=== PATIENT | male | born 1950 | race Caucasian/White ===

== ENCOUNTER 2016-04-21 07:56 | Emergency (ER) | payer MEDICARE ==
--- NOTE | 2016-04-21 08:42 | UC ---
Ear Complaint HPI - HPI Summary HPI Summary: pt c/o bilateral ear discomfort X 1 week. Has history of cerumen impaction and sees Dr. Mcdonald monthly for bilateral irrigation. C/o of dizziness and "ear itchiness" Has history of MS and is legally blind. Is accompanied by . - History of Current Complaint Chief Complaint: UCEar Stated Complaint: EAR COMPLAINT-BOTH Time Seen by Provider: 04/21/16 08:31 Hx Obtained From: Patient Onset/Duration: Gradual Onset, Lasting Days, Still Present Severity Initially: Mild Severity Currently: Mild Associated Signs/Symptoms: Positive: Hearing Loss - Allergies/Home Medications Allergies/Adverse Reactions: Allergies Allergy/AdvReac Type Severity Reaction Status Date / Time Acetazolamide Allergy Unknown Dizziness Unverified 04/21/16 08:16 [From Diamox Sequels] Baclofen Allergy Unknown Dizziness Unverified 04/21/16 08:16 Pravastatin Allergy Muscle Ache Verified 04/21/16 08:16 alphagen p Allergy Unknown See Comment Uncoded 04/21/16 08:16 PMH/Surg Hx/FS Hx/Imm Hx Previously Healthy: No - pt has MS and is legally blind Cardiovascular History Of: Reports: Hypertension - Surgical History Surgical History: Yes Surgery Procedure, Year, and Place: prostate scraping. Lazer surgery eyes. hernia - Family History Known Family History: Positive: Cardiac Disease - Social History Lives: With Family Alcohol Use: Occasionally Substance Use Type: None Smoking Status (MU): Former Smoker When Did the Patient Quit Smoking/Using Tobacco: 2005 Review of Systems Constitutional: Negative Skin: Negative Eyes: Negative ENT: Ear Ache, Other - hearing loss Respiratory: Negative Cardiovascular: Negative Gastrointestinal: Negative Genitourinary: Negative Motor: Negative Neurovascular: Negative Musculoskeletal: Arthralgia, Myalgia Neurological: Negative Psychological: Negative All Other Systems Reviewed And Are Negative: Yes Physical Exam Triage Information Reviewed: Yes Appearance: Well-Appearing Vital Signs: Initial Vital Signs Temp 98.4 F 04/21/16 08:17 Pulse 88 04/21/16 08:17 Resp 18 04/21/16 08:17 BP 172/94 04/21/16 08:17 Pulse Ox 99 04/21/16 08:17 Vital Signs Reviewed: Yes Eye Exam: Normal, Other - pt is legally blind ENT: Positive: Other: - "itchy" bialteral ears Neck exam: Normal Respiratory Exam: Normal Cardiovascular Exam: Normal Musculoskeletal Exam: Other Musculoskeletal: Positive: ROM Limited @, Other: - History of MS and legally blind Neurological: Positive: Other: - history of ms Skin Exam: Normal Ear Complaint Course/Dx - Differential Dx/Diagnosis Differential Diagnosis/HQI/PQRI: Cerumen Impaction, Otitis Externa Provider Diagnoses: cerumen impaction. otitis externa Discharge - Discharge Plan Condition: Stable Disposition: HOME Prescriptions: Hydrocortisone W/Acetic Acid [Hydrocortisone/Acetic Aci 1-2 %] 1 thierno OT Q8H #1 bottle Patient Education Materials: Cerumen Impaction (ED) Referrals: Luis E Mcdonald MD [Medical Doctor] - Sg Truong MD [Primary Care Provider] - Additional Instructions: Please follow up with Dr. Mcdonald. you are an existing patient with Dr. Mcdonald and it is important to continue with continuity of care.
[2016-04-21 09:17] VITALS: BP 164/95
== END 2016-04-21 09:28 | disposition home or self-care (01) ==
LOC: UCCORT 07:56
DX: H61.23 Impacted cerumen, bilateral (principal); H60.8X3 Other otitis externa, bilateral; I10 Essential (primary) hypertension; H54.8 Legal blindness, as defined in USA; Z87.39 Personal history of other diseases of the musculoskeletal system and connective tissue; Z88.6 Allergy status to analgesic agent; Z88.8 Allergy status to other drugs, medicaments and biological substances; Z87.891 Personal history of nicotine dependence
CPT/HCPCS: 99213; G0463

== ENCOUNTER 2017-12-31 09:27 | Emergency (ER) | payer MEDICARE ==
--- OUTSIDE RECORDS SUMMARY | 2017-12-31 09:36 | XMS REPORT | Continuity of Care Document ---
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 Sg Truong MD Primary Care Physician Unavailable Payers Type Date Identification Numbers Payment Provider Subscriber Policy Number: [id number] [employer] Jaquan Lees Group Number: [id number] [address] [address] PayID: [id number] [place] [address] Advance Directives Description No Information Available Problems Description No Information Family History Description No Information Available Social History Type Date Description Comments Sex Unknown Allergies, Adverse Reactions, Alerts Date Description Reaction Status Severity Comments 12/15/2017 Alphagan Active 12/15/2017 Baclofen Active 12/15/2017 Diamox Active 12/15/2017 Pravastatin Active Medications Medication Date Status Form Strength Qnty SIG Indications Ordering Provider Pilocarpine 11/24/ Active Solution 4% 30unit Instill Frank S HCL 2018 s One Drop Jeremy Into The MD Right Eye Four Times A Day as Directed Latanoprost 08/08/ Active Solution 0.005% 7.5uni Instill 1 Frank S 2018 ts Drop In Jeremy The Right MD Eye AT Bedtime as Directed Ezetimibe / Active Tablets 10mg Unknown 0000 Dorzolamide 09/28/ Hx Solution 22.3-6.8mg 10unit Instill Frank S HCL/Timolol 2018 - /ml s One Drop Jeremy Maleate 12/15/ Into The MD 2018 Right Eye Two Times A Day as Directed Immunizations Description No Information Available Vital Signs Description No Information Available Results Description No Information Available Procedures Date Code Description Status 06/13/2017 62559 Scan Computer Diag Imag W/Report,Retina Completed 06/13/2017 25464 Scan Computer Diag Imag W/Report Optic Nerve Completed 06/13/2017 14112 Vis Field W/Med Diag;Ext,Ruperto Per Completed 06/13/2017 17890 Exam, Comprehensive, Est PT Completed 12/25/2016 47108 Vis Field W/Med Diag;Ext,Ruperto Per Completed 12/04/2016 94344 Scan Computer Diag Imag W/Report Optic Nerve Completed 12/04/2016 41538 Vis Field W/Med Diag;Ext,Ruperto Per Completed 12/04/2016 63142 Exam, Comprehensive, Est PT Completed 09/03/2016 90089 Scan Computer Diag Imag W/Report Optic Nerve Completed 09/03/2016 22631 Exam, Comprehensive, Est PT Completed 05/28/2016 78498 Exam, Comprehensive, Est PT Completed 05/28/2016 80648 Vis Field W/Med Diag;Ext,Ruperto Per Completed 05/28/2016 77945 Scan Computer Diag Imag W/Report Optic Nerve Completed 11/28/2015 93866 Ophthalmoscopy; W/Fundus Photo Completed 11/28/2015 77833 Vis Field W/Med Diag;Ext,Ruperto Per Completed 11/28/2015 81283 Exam, Comprehensive, Est PT Completed 05/24/2015 23099 Scan Computer Diag Imag W/Report Optic Nerve Completed 05/24/2015 87183 Vis Field W/Med Diag;Ext,Ruperto Per Completed 05/24/2015 27870 Exam, Comprehensive, Est PT Completed 11/21/2014 52645 Cornea Pachymetry, Unilat/Bilat Completed 11/21/2014 41598 Exam, Comprehensive, Est PT Completed 11/21/2014 90405 Vis Field W/Med Diag;Ext,Ruperto Per Completed 11/21/2014 14183 Scanning Computerized Ophthalmic Diagnostic Imaging, Completed Anterior 11/21/2014 18665 Scan Computer Diag Imag W/Report Optic Nerve Completed 07/01/2014 62113 Vis Field W/Med Diag;Ext,Ruperto Per Completed 07/01/2014 85431 Exam, Comprehensive, Est PT Completed 03/03/2014 22972 Scan Computer Diag Imag W/Report Optic Nerve Completed 03/03/2014 74400 Vis Field W/Med Diag;Ext,Ruperto Per Completed 03/03/2014 36962 Exam, Comprehensive, Est PT Completed 09/21/2013 43678 Vis Field W/Med Diag;Ext,Ruperto Per Completed 09/21/2013 59092 Exam, Comprehensive, Est PT Completed 07/30/2013 71882 Exam, Comprehensive, Est PT Completed 07/30/2013 51106 Vis Field W/Med Diag;Ext,Ruperto Per Completed 07/30/2013 62720 Scan Computer Diag Imag W/Report Optic Nerve Completed 01/26/2013 36283 Vis Field W/Med Diag;Ext,Ruperto Per Completed 06/18/2012 18151 Scan Computer Diag Imag W/Report Optic Nerve Completed 06/18/2012 76188 Vis Field W/Med Diag;Ext,Ruperto Per Completed 01/21/2012 34917 Vis Field W/Med Diag;Ext,Ruperto Per Completed 12/20/2011 63461 Ophthalmoscopy; W/Fundus Photo Completed 12/20/2011 64086 Vis Field W/Med Diag;Ext,Ruperto Per Completed 06/19/2011 86836 Vis Field W/Med Diag;Ext,Ruperto Per Completed 11/30/2010 30891 Vis Field W/Med Diag;Ext,Ruperto Per Completed 11/30/2010 41039 Scan Computer Diag Imag W/Report Optic Nerve Completed 11/07/2010 08426 Fee-Medical Report Completed 04/02/2010 61924 Scleral Reinforce;W/Graft OD Completed 04/02/2010 32381 Aqueous Shunt Extraocular Reservr Completed 03/27/2010 08473 Vis Field W/Med Diag;Ext,Ruperto Per Completed 09/11/2009 17808 OCT Completed 09/11/2009 27769 OCT Completed 09/11/2009 27223 Vis Field W/Med Diag;Ext,Ruperto Per Completed 05/08/2009 90812 Vis Field W/Med Diag;Ext,Ruperto Per Completed 11/17/2008 92346 Vis Field W/Med Diag;Ext,Ruperto Per Completed 10/10/2008 27615 Vis Field W/Med Diag;Ext,Ruperto Per Completed 03/28/2008 44040 Vis Field W/Med Diag;Ext,Ruperto Per Completed 10/05/2007 08042 Ophthalmoscopy; W/Fundus Photo Completed 10/05/2007 37483 Vis Field W/Med Diag;Ext,Ruperto Per Completed 07/27/2007 98296 Vis Field W/Med Diag;Ext,Ruperto Per Completed 01/20/2007 80035 Vis Field W/Med Diag;Ext,Ruperto Per Completed 12/16/2006 13024 Ophthalmoscopy; W/Fundus Photo Completed 08/01/2006 69953 OCT Completed 08/01/2006 67181 OCT Completed 06/26/2006 35867 Closure Of Lac Punctum By Plug Completed 06/26/2006 77580 Vis Field W/Med Diag;Ext,Ruperto Per Completed 06/26/2006 36486 OCT Completed 06/10/2006 08600 Vis Field W/Med Diag;Ext,Ruperto Per Completed 05/23/2006 86557 OCT Completed 05/16/2006 85255 Discission Sec Mem/Ant Hyaloid;Laser Surgery OD Completed 05/02/2006 77499 Vis Field W/Med Diag;Ext,Ruperto Per Completed 04/08/2006 44346 Discission Sec Mem/Ant Hyaloid;Laser Surgery OD Completed 02/18/2006 21358 Extracapsular Cat REM W/Insert Completed IOL,Manual/Phacoemulsification OD 02/06/2006 86207 IOL Master Completed 02/06/2006 04933 Anterior Segment Ultrasound Completed 02/06/2006 46737 Anterior Segment Ultrasound Completed 12/27/2005 46848 Ant Seg Photos W/Diag;Spec Micros Completed 12/27/2005 91212 Ant Seg Photos W/Diag;Spec Micros Completed 09/30/2005 53204 Aqueous Shunt Extraocular Reservr Completed 06/27/2005 58789 Vis Field W/Med Diag;Ext,Ruperto Per Completed 01/10/2005 91578 Vis Field W/Med Diag;Ext,Ruperto Per Completed 01/10/2005 82873 Gonioscopy W/Med Diag Eval Completed 10/16/2004 96833 OCT Completed 08/21/2004 69033 Ophthalmoscopy; W/Fundus Photo Completed 07/18/2004 33777 Ophthalmoscopy; W/Fundus Photo Completed 07/18/2004 29916 Vis Field W/Med Diag;Ext,Ruperto Per Completed 07/18/2004 33362 Gonioscopy W/Med Diag Eval Completed 07/18/2004 17810 Cornea Pachymetry, Unilat/Bilat Completed Encounters Type Date Location Provider Dx Diagnosis Office Visit 03/26/2017 Main Office [facility] Whitfield H40.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 Glaucoma secondary 9:45a Jeremy STANTON to eye inflam, right eye, 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, 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 H25.12 Age-related nuclear cataract, left eye 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, left eye Office Visit 12/25/2016 8:30a Main Office Frank Whitfield 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, 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, right eye, 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, 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, bilateral, early dry stage H25.812 Combined forms of age-related cataract, left eye Office Visit 06/12/2016 7:45a Main Office Frank Whitfield 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, 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, right eye, 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, left eye H25.812 Combined forms of age-related cataract, left eye Office Visit 05/19/2014 8:30a Main Office Frank Whitfield 365.04 Glaucoma Jeremy STANTON Hypertension Ocular 365.60 Glaucoma Associated W/ Unspec Ocular Disorder Office Visit 04/21/2014 8:30a Main Office Frank Whitfield 364.21 Machelle Luna MD Cyclitis 365.60 Glaucoma Associated W/ Unspec Ocular Disorder 365.04 Glaucoma Hypertension Ocular Office Visit 03/30/2014 10:00a Main Office Frank Whitfield 364.21 Machelle Luna MD Cyclitis Office Visit 12/27/2013 9:30a Main Office Frank Whitfield 365.11 Glaucoma Primary Jeremy STANTON Open Angle 365.73 Severe Stage Glaucoma 365.04 Glaucoma Hypertension Ocular Office Visit 10/26/2013 7:45a Main Office Frank Whitfield 365.04 Glaucoma Jeremy STANTON Hypertension Ocular Office Visit 04/26/2013 9:30a Main Office Frank Whitfield 365.10 Glaucoma Open Angle Jeremy STANTON Unspec 365.72 Moderate Stage Glaucoma 365.60 Glaucoma Associated W/ Unspec Ocular Disorder 364.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 Cyclitis Office Visit 01/26/2013 9:00a Main Office Frank Whitfield 364.21 Machelle uLna MD Cyclitis 365.10 Glaucoma Open Angle Unspec 365.60 Glaucoma Associated W/ Unspec Ocular Disorder Office Visit 10/14/2012 7:45a Main Office Frank S 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 365.10 Glaucoma Open Angle Unspec Office Visit 09/02/2012 7:45a Main Office Frank Whitfield 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 Office Visit 07/30/2012 8:00a Main Office Frank Whitfield 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 Office Visit 06/18/2012 8:30a Main Office Frank Whitfield 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 Office Visit 12/20/2011 8:00a Main Office Frank Whitfield 365.11 Glaucoma Primary Jeremy STANTON Open Angle 365.73 Severe Stage Glaucoma Office Visit 08/20/2011 8:00a Main Office Frank Whitfield 365.11 Glaucoma Primary Jeremy STANTON Open Angle 365.72 Moderate Stage Glaucoma 365.71 Mild Stage Glaucoma Office Visit 06/19/2011 8:15a Main Office Frank Whitfield 364.21 Fuchs Heterochrombertha Luna MD Cyclitis 365.60 Glaucoma Associated W/ Unspec Ocular Disorder Office Visit 11/30/2010 8:30a Main Office Frank Whitfield 365.11 Glaucoma Primary Jeremy STANTON Open Angle 365.73 Severe Stage Glaucoma Office Visit 07/31/2010 10:15a Main Office Frank Whitfield 364.3 Iridocyclitis Jeremy STANTON Uveitis Unspec 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 Office Visit 03/20/2010 9:00a Main Office Frank Whitfield 365.11 Glaucoma Primary Jeremy STANTON Open Angle Office Visit 02/14/2010 8:00a Main Office Frank Whitfield 365.10 Glaucoma Open Angle Jeremy STANTON Unspec Office Visit 12/29/2009 10:15a Main Office Frank Whitfield 365.11 Glaucoma Primary Jeremy STANTON Open Angle Office Visit 10/18/2009 8:00a Main Office Frank Whitfield 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 Office Visit 09/11/2009 8:15a Main Office Frank Whitfield 364.21 Fuchs Heterochrombertha Luna MD Cyclitis 365.60 Glaucoma Associated W/ Unspec Ocular Disorder Office Visit 05/08/2009 9:15a Main Office Frank Whitfield 365.60 Glaucoma Associated Jeremy STANTON W/ Unspec Ocular Disorder Office Visit 02/10/2009 9:00a Main Office Frank Whitfield 365.60 Glaucoma Associated Jeremy STANTON W/ Unspec Ocular Disorder Office Visit 11/17/2008 8:00a Main Office Frank Whitfield 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 Office Visit 10/10/2008 9:00a Main Office Frank Whitfield 365.60 Glaucoma Associated Jeremy STANTON W/ Unspec Ocular Disorder Office Visit 06/29/2008 2:15p Main Office Frank Whitfield 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 Office Visit 03/28/2008 9:15a Main Office Frank Whitfield 365.60 Glaucoma Associated Jeremy STANTON W/ Unspec Ocular Disorder Office Visit 12/25/2007 2:00p Main Office Frank Whitfield 364.21 Fuchs Heterochrombertha Luna MD Cyclitis Office Visit 12/02/2007 2:30p Main Office Frank Whitfield 365.11 Glaucoma Primary Jeremy STANTON Open Angle Office Visit 10/28/2007 3:00p Main Office Frank Whitfield 365.11 Glaucoma Primary Jeremy STANTON Open Angle Office Visit 10/05/2007 8:15a Main Office Frank Whitfield 365.11 Glaucoma Primary Jeremy STANTON Open Angle Office Visit 07/27/2007 10:15a Main Office Frank Whitfield 365.11 Glaucoma Primary Jeremy STANTON Open Angle Office Visit 07/21/2007 2:45p Main Office Frank Whitfield 364.21 Fuchs Heterochrombertha Luna MD Cyclitis Office Visit 01/20/2007 2:15p Main Office Frank Whitfield 365.11 Glaucoma Primary Jeremy STANTON Open Angle Office Visit 12/16/2006 8:00a Main Office Frank Whitfield 365.11 Glaucoma Primary Jeremy STANTON Open Angle Office Visit 08/01/2006 8:15a Main Office Frank Whitfield 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 Office Visit 06/26/2006 8:15a Main Office Frank Whitfield 375.15 Dry Eye Syndrome Jeremy STANTON Tear Film Insufficiency Unspec 365.60 Glaucoma Associated W/ Unspec Ocular Disorder Office Visit 06/10/2006 2:30p Main Office Frank Whitfield 365.60 Glaucoma Jeremy STANTON Associated W/ Unspec Ocular Disorder Office Visit 05/23/2006 1:45p Main Office Frank Whitfield 365.60 Glaucoma Jeremy STANTON Associated W/ Unspec Ocular Disorder 362.83 Retinal Edema Office Visit 05/02/2006 8:00a Main Office Frank Whitfield 365.11 Glaucoma Primary Jeremy STANTON Open Angle Office Visit 12/27/2005 8:45a Main Office Domingo Neal 371.57 Corneal Dystrophy MD Cyrus Endothelial Office Visit 09/26/2005 8:00a Main Office Frank S 365.11 Glaucoma Primary Jeremy STANTON Open Angle Office Visit 09/10/2005 8:30a Main Office Frank Whitfield 364.21 Fuchs Heterochrombertha Luna MD Cyclitis 365.60 Glaucoma Associated W/ Unspec Ocular Disorder Office Visit 07/23/2005 9:30a Main Office Frank Whitfield 365.11 Glaucoma Primary Jeremy STANTON Open Angle Office Visit 06/27/2005 8:45a Main Office Frank Whitfield 365.60 Glaucoma Associated Jeremy STANTON W/ Unspec Ocular Disorder Office Visit 01/10/2005 8:15a Main Office Frank Whitfield 365.10 Glaucoma Open Angle Jeremy STANTON Unspec Office Visit 10/16/2004 8:00a Main Office Frank Whitfield 365.60 Glaucoma Associated Jeremy STANTON W/ Unspec Ocular Disorder Office Visit 08/21/2004 9:10a Main Office Frank Whitfield 364.21 Fucgavino Heterochrombertha Luna MD Cyclitis Office Visit 07/18/2004 2:00p Main Office Frank Whitfield 365.11 Glaucoma Primary Jeremy STANTON Open Angle Plan of Treatment No Information Available
--- OUTSIDE RECORDS SUMMARY | 2017-12-31 09:36 | XMS REPORT | Continuity of Care Document ---
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 Sg Truong MD Primary Care Physician Unavailable Payers Type Date Identification Numbers Payment Provider Subscriber Policy Number: [id number] [employer] Jaquan Lees Group Number: [id number] [address] [address] PayID: [id number] JessicaNUVIA [place] [address] Advance Directives Description No Information Available Problems Date Description Provider Status Onset: 12/15/2017 Psoriasis Frank Luna MD Active Family History Date Family Member(s) Problem(s) Comments Father Heart Disease Father Hypertension Social History Type Date Description Comments Sex Unknown ETOH Use Currently consumes alcohol Tobacco Use Start: Unknown End: Unknown Patient is a former smoker Smoking Status Reviewed: 12/15/17 Patient is a former smoker Allergies, Adverse Reactions, Alerts Date Description Reaction Status Severity Comments 12/15/2017 Alphagan Active 12/15/2017 Baclofen Active 12/15/2017 Diamox Active 12/15/2017 Pravastatin Active Medications Medication Date Status Form Strength Qnty SIG Indications Ordering Provider Cosopt 12/15/ Active Solution 22.3-6.8mg 10ml 1 drop H40.41x3 Frank Whitfield 2018 /ml into the Jeremy right twice a day Pushes 12/15/ Active 4p x 4 H40.41x3 Frank S 2018 right eye Jeremy STANTON [place] 11/24/ Active Solution 4% 30unit Instill H40.41x3 Frank Whitfield HCL 2018 s One Drop Jeremy Into The Right Eye Four Times A Day as Directed Latanoprost 08/08/ Active Solution 0.005% 7.5uni Instill 1 H40.41x3 Frank S 2018 ts Drop In Jeremy The Right MD Eye AT Bedtime as Directed Ezetimibe / Active Tablets 10mg Unknown 0000 Dorzolamide 09/28/ Hx Solution 22.3-6.8mg 10unit Instill Frank S HCL/Timolol 2018 - /ml s One Drop Jeremy Maleate 12/15/ Into The MD 2018 Right Eye Two Times A Day as Directed Immunizations Description No Information Available Vital Signs Date Vital Result Comment 12/15/2017 9:56am Intraocular Pressure Right Eye 20 mmHg Ap Intraocular Pressure Left Eye 21 mmHg Ap 09:57 Am Recheck IOP Right Eye 11p Results Description No Information Available Procedures Date Code Description Status 12/15/2017 40532 Scan Computer Diag Imag W/Report Optic Nerve Completed 12/15/2017 97978 Vis Field W/Med Diag;Ext,Ruperto Per Completed 12/15/2017 50867 Exam, Comprehensive, Est PT Completed 06/13/2017 42958 Scan Computer Diag Imag W/Report,Retina Completed 06/13/2017 42842 Scan Computer Diag Imag W/Report Optic Nerve Completed 06/13/2017 69013 Vis Field W/Med Diag;Ext,Ruperto Per Completed 06/13/2017 71039 Exam, Comprehensive, Est PT Completed 12/25/2016 99711 Vis Field W/Med Diag;Ext,Ruperto Per Completed 12/04/2016 93816 Scan Computer Diag Imag W/Report Optic Nerve Completed 12/04/2016 93288 Vis Field W/Med Diag;Ext,Ruperto Per Completed 12/04/2016 35380 Exam, Comprehensive, Est PT Completed 09/03/2016 74770 Exam, Comprehensive, Est PT Completed 09/03/2016 39529 Scan Computer Diag Imag W/Report Optic Nerve Completed 05/28/2016 11824 Scan Computer Diag Imag W/Report Optic Nerve Completed 05/28/2016 90941 Vis Field W/Med Diag;Ext,Ruperto Per Completed 05/28/2016 41363 Exam, Comprehensive, Est PT Completed 11/28/2015 32658 Ophthalmoscopy; W/Fundus Photo Completed 11/28/2015 59614 Vis Field W/Med Diag;Ext,Ruperto Per Completed 11/28/2015 99036 Exam, Comprehensive, Est PT Completed 05/24/2015 65419 Scan Computer Diag Imag W/Report Optic Nerve Completed 05/24/2015 31356 Vis Field W/Med Diag;Ext,Ruperto Per Completed 05/24/2015 05248 Exam, Comprehensive, Est PT Completed 11/21/2014 79087 Cornea Pachymetry, Unilat/Bilat Completed 11/21/2014 26014 Exam, Comprehensive, Est PT Completed 11/21/2014 04064 Vis Field W/Med Diag;Ext,Ruperto Per Completed 11/21/2014 70948 Scanning Computerized Ophthalmic Diagnostic Imaging, Completed Anterior 11/21/2014 97616 Scan Computer Diag Imag W/Report Optic Nerve Completed 07/01/2014 77602 Vis Field W/Med Diag;Ext,Ruperto Per Completed 07/01/2014 38331 Exam, Comprehensive, Est PT Completed 03/03/2014 08500 Scan Computer Diag Imag W/Report Optic Nerve Completed 03/03/2014 19252 Vis Field W/Med Diag;Ext,Ruperto Per Completed 03/03/2014 42827 Exam, Comprehensive, Est PT Completed 09/21/2013 71942 Vis Field W/Med Diag;Ext,Ruperto Per Completed 09/21/2013 20413 Exam, Comprehensive, Est PT Completed 07/30/2013 47835 Exam, Comprehensive, Est PT Completed 07/30/2013 24681 Vis Field W/Med Diag;Ext,Ruperto Per Completed 07/30/2013 55310 Scan Computer Diag Imag W/Report Optic Nerve Completed 01/26/2013 18092 Vis Field W/Med Diag;Ext,Ruperto Per Completed 06/18/2012 52679 Scan Computer Diag Imag W/Report Optic Nerve Completed 06/18/2012 58643 Vis Field W/Med Diag;Ext,Ruperto Per Completed 01/21/2012 50239 Vis Field W/Med Diag;Ext,Ruperto Per Completed 12/20/2011 56184 Ophthalmoscopy; W/Fundus Photo Completed 12/20/2011 58632 Vis Field W/Med Diag;Ext,Ruperto Per Completed 06/19/2011 44326 Vis Field W/Med Diag;Ext,Ruperto Per Completed 11/30/2010 65819 Vis Field W/Med Diag;Ext,Ruperto Per Completed 11/30/2010 72470 Scan Computer Diag Imag W/Report Optic Nerve Completed 11/07/2010 25779 Fee-Medical Report Completed 04/02/2010 61642 Scleral Reinforce;W/Graft OD Completed 04/02/2010 56809 Aqueous Shunt Extraocular Reservr Completed 03/27/2010 10511 Vis Field W/Med Diag;Ext,Ruperto Per Completed 09/11/2009 34052 OCT Completed 09/11/2009 57174 OCT Completed 09/11/2009 33520 Vis Field W/Med Diag;Ext,Ruperto Per Completed 05/08/2009 22376 Vis Field W/Med Diag;Ext,Ruperto Per Completed 11/17/2008 50245 Vis Field W/Med Diag;Ext,Ruperto Per Completed 10/10/2008 26041 Vis Field W/Med Diag;Ext,Ruperto Per Completed 03/28/2008 42097 Vis Field W/Med Diag;Ext,Ruperto Per Completed 10/05/2007 47791 Ophthalmoscopy; W/Fundus Photo Completed 10/05/2007 29422 Vis Field W/Med Diag;Ext,Ruperto Per Completed 07/27/2007 68732 Vis Field W/Med Diag;Ext,Ruperto Per Completed 01/20/2007 21434 Vis Field W/Med Diag;Ext,Ruperto Per Completed 12/16/2006 95226 Ophthalmoscopy; W/Fundus Photo Completed 08/01/2006 42019 OCT Completed 08/01/2006 36749 OCT Completed 06/26/2006 34879 Closure Of Lac Punctum By Plug Completed 06/26/2006 94401 Vis Field W/Med Diag;Ext,Ruperto Per Completed 06/26/2006 93172 OCT Completed 06/10/2006 66294 Vis Field W/Med Diag;Ext,Ruperto Per Completed 05/23/2006 92360 OCT Completed 05/16/2006 21705 Discission Sec Mem/Ant Hyaloid;Laser Surgery OD Completed 05/02/2006 84968 Vis Field W/Med Diag;Ext,Ruperto Per Completed 04/08/2006 94072 Discission Sec Mem/Ant Hyaloid;Laser Surgery OD Completed 02/18/2006 12600 Extracapsular Cat REM W/Insert Completed IOL,Manual/Phacoemulsification OD 02/06/2006 38391 IOL Master Completed 02/06/2006 31720 Anterior Segment Ultrasound Completed 02/06/2006 11338 Anterior Segment Ultrasound Completed 12/27/2005 44908 Ant Seg Photos W/Diag;Spec Micros Completed 12/27/2005 72846 Ant Seg Photos W/Diag;Spec Micros Completed 09/30/2005 27946 Aqueous Shunt Extraocular Reservr Completed 06/27/2005 61270 Vis Field W/Med Diag;Ext,Ruperto Per Completed 01/10/2005 08627 Vis Field W/Med Diag;Ext,Ruperto Per Completed 01/10/2005 89211 Gonioscopy W/Med Diag Eval Completed 10/16/2004 71336 OCT Completed 08/21/2004 55007 Ophthalmoscopy; W/Fundus Photo Completed 07/18/2004 35331 Ophthalmoscopy; W/Fundus Photo Completed 07/18/2004 81207 Vis Field W/Med Diag;Ext,Ruperto Per Completed 07/18/2004 19861 Gonioscopy W/Med Diag Eval Completed 07/18/2004 53215 Cornea Pachymetry, Unilat/Bilat Completed Encounters Type Date [...] 04/21/2014 8:30a Main Office Frank Whitfield 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 365.60 Glaucoma Associated W/ Unspec Ocular Disorder 365.04 Glaucoma Hypertension Ocular Office Visit 03/30/2014 10:00a Main Office Frank Whitfield 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 Office Visit 12/27/2013 9:30a Main Office [...] 01/26/2013 9:00a Main Office Frank Whitfield 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 365.10 Glaucoma Open Angle Unspec 365.60 Glaucoma Associated W/ Unspec Ocular Disorder Office Visit 10/14/2012 7:45a Main Office Frank Whitfield 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 365.10 [...] Glaucoma Office Visit 08/20/2011 8:00a Main Office Farnk Whitfield 365.11 Glaucoma Primary Jeremy STANTON Open Angle 365.72 Moderate Stage Glaucoma 365.71 Mild Stage Glaucoma Office Visit 06/19/2011 8:15a Main Office Frank Whitfield 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 365.60 Glaucoma Associated W/ Unspec Ocular [...] 8:00a Main Office Frank Whitfield 364.21 Fuchs Heterochrombertha Luna MD Cyclitis Office Visit 10/10/2008 9:00a Main Office Frank Whitfield 365.60 Glaucoma Associated Jeremy STANTON W/ Unspec Ocular Disorder Office Visit 06/29/2008 2:15p Main Office Frank Whitfield 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 Office Visit 03/28/2008 9:15a Main Office Frank Whitfield 365.60 Glaucoma Associated Jeremy STANTON W/ Unspec Ocular Disorder Office Visit 12/25/2007 2:00p Main Office Frank Whitfield 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 Office Visit 12/02/2007 2:30p Main Office [...] Office Visit 09/26/2005 8:00a Main Office Frank Whitfield 365.11 Glaucoma Primary Jeremy STANTON Open Angle Office Visit 09/10/2005 8:30a Main Office Frank Whitfield 364.21 Fucgavino Heterochrombertha Luna MD Cyclitis 365.60 Glaucoma Associated [...] 08/21/2004 9:10a Main Office Frank Whitfield 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 Office Visit 07/18/2004 2:00p Main Office Frank Whitfield 365.11 Glaucoma Primary Jeremy STANTON Open Angle Plan of Treatment Future Appointment(s):06/16/2018 9:45 am - Frank Luna MD at Main Byjvvd8312/15/2017 - Frank Luna MD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 , right eyeH40.41x3 Glaucoma secondary to eye inflammation, right eye, severe stNew Medication:Cosopt 22.3-6.8 mg/ml - 1 drop into the right twice a dayPushes - 4p x 4 right eyeH20.9 Unspecified drcyxbteujoxyR69.812 Combined forms of age-related cataract, left eye
[2017-12-31 09:51] VITALS: BP 157/81
--- NOTE | 2017-12-31 10:19 | UC ---
Throat Pain/Nasal August HPI - HPI Summary HPI Summary: 67-year-old male comes in today with a chief complaint of upper respiratory tract congestion for more than a month. Couple weeks ago he was having a lot of rhinorrhea and cough and chest congestion its gradually improved but never written away completely in the last week it's gotten worse again. He does have rhinorrhea but he's and and has not seen the color of his rhinorrhea. He did try some cough syrup which did help with the symptoms. No fevers no chest pain. - History of Current Complaint Chief Complaint: UCRespiratory Stated Complaint: CONGESTION Time Seen by Provider: 12/31/17 10:03 Pain Intensity: 0 - Allergies/Home Medications Allergies/Adverse Reactions: Allergies Allergy/AdvReac Type Severity Reaction Status Date / Time acetazolamide Allergy Dizziness Verified 12/31/17 10:01 [From Diamox Sequels] baclofen Allergy Dizziness Verified 12/31/17 10:01 pravastatin Allergy Muscle Ache Verified 12/31/17 10:01 alphagen p Allergy Unknown See Comment Uncoded 12/31/17 10:01 Home Medications: Home Medications Ezetimibe TAB* [Zetia TAB*] 10 mg PO DAILY 12/31/17 [History Confirmed 12/31/17] PMH/Surg Hx/FS Hx/Imm Hx - Additional Past Medical History Additional PMH: MS - Surgical History Surgical History: Yes Surgery Procedure, Year, and Place: prostate scraping. Lazer surgery eyes. hernia. appendectomy - Family History Known Family History: Positive: Cardiac Disease - Social History Alcohol Use: Occasionally Substance Use Type: None Smoking Status (MU): Former Smoker When Did the Patient Quit Smoking/Using Tobacco: 2005 Review of Systems Constitutional: Negative, Other - Some dizziness since he's been ill. Denies any spinning dizziness. Skin: Negative Eyes: Negative ENT: Sore Throat, Nasal Discharge, Sinus Congestion Respiratory: Cough Cardiovascular: Negative Gastrointestinal: Negative Motor: Negative Neurovascular: Negative Musculoskeletal: Negative Neurological: Negative Psychological: Negative Is Patient Immunocompromised?: No All Other Systems Reviewed And Are Negative: Yes Physical Exam Triage Information Reviewed: Yes Appearance: Well-Appearing, No Pain Distress, Well-Nourished Vital Signs: Initial Vital Signs Temp 98 F 12/31/17 09:42 Pulse 85 12/31/17 09:42 Resp 16 12/31/17 09:42 BP 157/81 12/31/17 09:42 Pulse Ox 99 12/31/17 09:42 Vital Signs Reviewed: Yes Eye Exam: Normal Eyes: Positive: Conjunctiva Clear ENT: Positive: Pharyngeal erythema, Nasal congestion, Nasal drainage, TMs normal Neck exam: Normal Neck: Positive: Supple Respiratory: Positive: Lungs clear, Normal breath sounds, No respiratory distress Cardiovascular: Positive: RRR Musculoskeletal Exam: Normal Musculoskeletal: Positive: Strength Intact, ROM Intact Neurological Exam: Normal Neurological: Positive: Alert, Muscle Tone Normal Psychological Exam: Normal Psychological: Positive: Age Appropriate Behavior Skin Exam: Normal Throat Pain/Nasal Course/Dx - Course Course Of Treatment: Since there is no spinning associated with the dizziness I did not prescribe meclizine. We discussed if the dizziness does not improve with this treatment he needs to get reevaluated. - Differential Dx/Diagnosis Provider Diagnoses: SINUSITIS Discharge - Sign-Out/Discharge Documenting (check all that apply): Patient Departure All imaging exams completed and their final reports reviewed: No Studies - Discharge Plan Condition: Stable Disposition: HOME Prescriptions: Amoxicillin/Clavulanate TAB* [Augmentin TAB 875*] 875 mg PO BID #20 tab Patient Education Materials: Sinusitis (ED) Referrals: Sg Truong MD [Primary Care Provider] - Additional Instructions: FOLLOW UP WITH YOUR DOCTOR IF NOT COMPLETELY IMPROVED. GET RECHECKED FOR ANY WORSENING OF YOUR CONDITION OR QUESTIONS OR CONCERNS. - Billing Disposition and Condition Condition: STABLE Disposition: Home
== END 2017-12-31 10:27 | disposition home or self-care (01) ==
LOC: UCCORT 09:27
DX: J32.9 Chronic sinusitis, unspecified (principal); G35 Multiple sclerosis; Z87.891 Personal history of nicotine dependence; Z88.8 Allergy status to other drugs, medicaments and biological substances
CPT/HCPCS: 99212; G0463

== ENCOUNTER 2018-10-23 09:08 | Emergency (ER) | payer MEDICARE ==
--- OUTSIDE RECORDS SUMMARY | 2018-10-23 09:16 | XMS REPORT | Continuity of Care Document ---
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, 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 Amblyopia Isael Arellano III, MD Onset: 07/17/2018 Iridocyclitis Isael Arellano III, 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 Frank Luna MD Onset: 06/16/2018 inflammation, right eye, 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 Social History Type Date Description Comments Sex Unknown ETOH Use Currently consumes alcohol Tobacco Use Start: Unknown End: Unknown Patient is a former smoker Smoking Status Reviewed: 07/17/18 Patient is a former smoker Allergies, Adverse Reactions, Alerts Active Allergies Reaction Severity Comments Date Alphagan 12/15/2017 Baclofen 12/15/2017 Diamox Dizziness 12/15/2017 Pravastatin 12/15/2017 Lumigan 10/14/2018 Medications Active Medications SIG Qnty Indications Ordering Provider Date Latanoprost instill one drop 7.500ml T49.5x5A Isael Gabriel 10/14/2018 0.005% into right eye Eileen JOHNSTON MD Solution at bedtime as directed H40.41x3 Rhopressa 1 drop into the 7.5ml H40.41x3 Isael Gabriel 06/16/2018 0.02% right eye at Elyseentis III MD Solution bedtime Dorzolamide Instill One Drop 10units H40.41x3 Frank Chaconlbaum 2018 HCL/Timolol Maleate Into The Right MD Eye Two Times A 22.3-6.8mg/ml Day as Directed Solution Pushes 4p x 4 right eye H40.41x3 Frank Chaconlbaum 12/15/2017 Pilocarpine HCL Instill One Drop 30units H40.41x3 Frank Chaconlbaum 02/2017 4% Into The Right MD Solution Eye Four Times A Day as Directed Ezetimibe Unknown 10mg Tablets Vitamin B 12 Unknown 250mcg Lozenges Vitamin D Unknown 2000Unit Capsules Ofloxacin Unknown (Ophthalmic) 0.3% Solution History Medications Lumigan 1 drop at 7.500ml H40.41x3 Isael Gabriel 07/17/2018 - 0.01% bedtime right Elyseentis III 10/14/2018 Solution eye Immunizations Description No Information Available Vital Signs Date Vital Result Comment 10/14/2018 1:48pm Intraocular Pressure Right Eye 14 mmHg Ap 01:48 PM Intraocular Pressure Left Eye 16 mmHg Ap 01:48 PM Recheck IOP Right Eye 16afd 01:56 PM 09/16/2018 1:40pm Intraocular Pressure Right Eye 16 mmHg ap 01:40 PM Intraocular Pressure Left Eye 21 mmHg ap 01:40 PM Results Description No Information Available Procedures Date Code Description Status 07/17/2018 18217 Vis Field W/Med Diag;Ext,Ruperto Per Completed 07/17/2018 97714 Exam, Intermediate Est PT Completed 06/16/2018 13893 Scan Computer Diag Imag W/Report Optic Nerve Completed 06/16/2018 48019 Vis Field W/Med Diag;Ext,Ruperto Per Completed 06/16/2018 68572 Exam, Comprehensive, Est PT Completed Medical Devices Description No Information Available Encounters Type Date Location Provider Dx Diagnosis Office Visit 07/31/2018 Main Office Isael Gabriel H40.41x3 Glaucoma secondary 12:45p DeVincentis III MD to eye inflam, right eye, 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, 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 H35.3131 Nexdtve age-related mclr degn, bilateral, early dry stage 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, left eye G35 Multiple sclerosis Assessments Date Code Description Provider 10/14/2018 T49.5x5A Adverse effect of ophthalmological Isael F DeVincentis III MD drugs and preparations, initial encounter 10/14/2018 H40.41x3 Glaucoma secondary to eye Isael F DeVincentis III MD inflammation, right eye, severe st 10/14/2018 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, right Isael F DeVincentis III MD eye 09/16/2018 H40.41x3 Glaucoma secondary to eye Isael F DeVincentis III MD inflammation, right eye, severe st 09/16/2018 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, right Isael F DeVincentis III MD eye 09/16/2018 H35.3131 Nonexudative age-related macular Isael F DeVincentis III MD degeneration, bilateral, ea 09/16/2018 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, left eye Isael F DeVincentis III MD 09/16/2018 G35 Multiple sclerosis Isael F DeVincentis III MD 07/31/2018 H40.41x3 Glaucoma secondary to eye Isael F DeVincentis III MD inflammation, right eye, severe st 07/31/2018 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, right Isael F DeVincentis III MD eye 07/31/2018 H20.9 Unspecified iridocyclitis Isael F DeVincentis III MD 07/31/2018 H35.3131 Nonexudative age-related macular Isael F DeVincentis III MD degeneration, bilateral, ea 07/31/2018 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, left eye Isael F DeVincentis III MD 07/31/2018 G35 Multiple sclerosis Isael F DeVincentis III MD 07/17/2018 H40.41x3 Glaucoma secondary to eye Isael F DeVincentis III MD inflammation, right eye, severe st 07/17/2018 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, right Isael F DeVincentis III MD eye 07/17/2018 H20.9 Unspecified iridocyclitis Isael Arellano III, MD 07/17/2018 H35.3131 Nonexudative age-related macular Isael Arellano III, MD degeneration, bilateral, ea 07/17/2018 H53.002 Unspecified amblyopia, left eye Isael Arellano III, MD 06/16/2018 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, right Frank Luna MD eye 06/16/2018 H40.41x3 Glaucoma secondary to eye Frank Luna MD inflammation, right eye, severe st 06/16/2018 H20.9 Unspecified iridocyclitis Frank Luna MD 06/16/2018 H25.812 Combined forms of age-related Frank Luna MD cataract, left eye 06/16/2018 H53.001 Unspecified amblyopia, right eye Frank Luna MD Plan of Treatment Future Appointment(s):11/06/2018 1:00 pm - Isael Arellano III, MD at Main [id number]/14/2018 - Isael Arellano III, MDT49.5x5A Adverse effect of ophthalmological drugs and preparations, initial encounterNew Medication: Latanoprost 0.005 % - instill one drop into right eye at bedtime as directedComments:stop lumigan and start latanoprost. Consider start a low dose steroid. cool compresses 3-4 times a day. At as neededFollow up:as scheduled.H40.41x3 Glaucoma secondary to eye inflammation, right eye, severe stNew Medication:Latanoprost 0.005 % - instill one drop into right eye at bedtime as directedComments:see#1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, right eyeComments:follow and monitor Functional Status Description No Information Available Mental Status Description No Information Available Referrals Description No Information Available
[2018-10-23 09:33] VITALS: BP 160/86
--- NOTE | 2018-10-23 10:00 | UC ---
Ear Complaint HPI - HPI Summary HPI Summary: Patient presents to urgent care with his . Patient was sent here by his ore feeder. Patient went for hearing aid adjustment and was told he had a cerumen impaction the right ear. Patient was sent here to have it irrigated. Patient has had this before. Patient without any complaints. No pain. No other symptoms. Medications reviewed this visit. - History of Current Complaint Chief Complaint: UCEar Stated Complaint: RT EAR CONCERN Time Seen by Provider: 10/23/18 09:37 Hx Obtained From: Patient, Family/Fisher Line Severity Currently: None Pain Intensity: 0 Pain Scale Used: 0-10 Numeric - Allergies/Home Medications Allergies/Adverse Reactions: Allergies Allergy/AdvReac Type Severity Reaction Status Date / Time acetazolamide Allergy Dizziness Verified 10/23/18 09:20 [From Diamox Sequels] baclofen Allergy Dizziness Verified 10/23/18 09:20 pravastatin Allergy Muscle Ache Verified 10/23/18 09:20 alphagen p Allergy Unknown See Comment Uncoded 10/23/18 09:20 Home Medications: Home Medications Cholecalciferol TAB* [Vitamin D TAB*] 1,000 unit PO DAILY 10/23/18 [History Confirmed 10/23/18] Multivitamin [Multivitamins] 1 each PO DAILY 10/23/18 [History Confirmed ] Netarsudil Mesylate [Rhopressa] 1 drop RIGHT EYE QPM 10/23/18 [History Confirmed 10/23/18] PMH/Surg Hx/FS Hx/Imm Hx Previously Healthy: Yes Cardiovascular History: Hypertension - Surgical History Surgical History: Yes Surgery Procedure, Year, and Place: prostate scraping. Lazer surgery eyes. hernia. appendectomy - Family History Known Family History: Positive: Cardiac Disease, Non-Contributory - Social History Occupation: Retired Lives: With Family Alcohol Use: Occasionally Substance Use Type: None Smoking Status (MU): Former Smoker When Did the Patient Quit Smoking/Using Tobacco: 2005 Review of Systems All Other Systems Reviewed And Are Negative: Yes Constitutional: Positive: Negative Skin: Positive: Negative Eyes: Positive: Negative ENT: Positive: Ear Ache - cerumen impaction Is Patient Immunocompromised?: No Physical Exam - Summary Physical Exam Summary: Vital Signs Reviewed: Yes A+Ox3, no distress Eyes: Conjunctiva Clear ENT: Hearing grossly normal, bilateral hearing aides. Pt with cerumen impaction on right - too deep to safely manually remove - will irrigate, left wnl; mmoist neck: supple Respiratory: Positive: No respiratory distress, No accessory muscle use Cardiovascular: skin color reflect adequate perfusion Musculoskeletal Exam: VIEYRA x 4 without difficulty Neurological: Positive: Alert, ambulatory without difficulty Psychological: Positive: Normal Response To examiner Skin: Positive: no rash, no ecchymosis Triage Information Reviewed: Yes Vital Signs: Initial Vital Signs Temp 98.7 F 10/23/18 09:27 Pulse 93 10/23/18 09:27 Resp 20 10/23/18 09:27 BP 160/86 10/23/18 09:27 Pulse Ox 98 10/23/18 09:27 Re-Evaluation - Re-Evaluation First Eval Change: Improved - Reevaluation following debridement. Cerumen removed. Will discharge home. Patient comfortable plan. Patient does have a small abrasion in his canal from the irrigation. Recommended is not insert hearing aid for a couple hours. Patient notified may have little bit of blood on hearing implement when use. Strict return precautions discussed. Patient and his significant other comfortable in agreement with plan. Ear Complaint Course/Dx - Course Course Of Treatment: Patient sent by his eye out is to have cerumen impaction of the right ear removed. Patient without any complaints. On exam vital signs are stable - elevated BP - history of same. Patient does have copious secretions in his right ear. Not comfortable manual debridement as it's very deep. We will irrigate and reassess. Patient comfortable in agreement with plan. - Differential Dx/Diagnosis Provider Diagnosis: Cerumen impaction Discharge ED - Sign-Out/Discharge Documenting (check all that apply): Patient Departure All imaging exams completed and their final reports reviewed: No Studies - Discharge Plan Condition: Stable Disposition: HOME Patient Education Materials: Cerumen Impaction (ED) Referrals: Sg Truong MD [Primary Care Provider] - Additional Instructions: - you have a small abraison (scratch) from the irrigation - it is recommended you leave your hearing aid out for a few hours and allow this to scab. You may get a small amount of blood on your ear piece - this is not concerning. If you develop fever, pain, ear drainage- you should be recheckd Contact your doctor or return with questions or concerns - Billing Disposition and Condition Condition: STABLE Disposition: Home
== END 2018-10-23 10:05 | disposition home or self-care (01) ==
LOC: UCCORT 09:08
DX: H61.21 Impacted cerumen, right ear (principal); I10 Essential (primary) hypertension; Z87.891 Personal history of nicotine dependence
CPT/HCPCS: 99212; G0463

== ENCOUNTER 2022-07-10 18:07 | Inpatient (IN) ==
[2022-07-11] MEDS ORDERED: Heparin 5000 UNITS/ML 1 mL VIAL SUBCUT ONE (00:19)
[2022-07-11 06:02] LABS: INR 1.12 (0.88-1.18)
[2022-07-11 06:44] LABS: Hematocrit 36.7 % (38-53); Hemoglobin 12.4 g/dL (13.2-16.3); Mean Corpuscular Hemoglobin 30.3 pg (27-33); Mean Corpuscular Hgb Conc 33.7 g/dL (31-36); Mean Platelet Volume 9.9 fL (7.5-11.2); Platelet Count 200 10^3/uL (150-450); Red Blood Count 4.08 10^6/uL (4.06-5.63); Red Cell Distribution Width 13.1 % (12-17); White Blood Count 11.1 10^3/uL (3.6-10.2)
[2022-07-11 06:55] LABS: Calcium 8.3 mg/dL (8.6-10.3); Creatinine, Serum 0.85 mg/dL (0.67-1.17); Potassium 4.5 mmol/L (3.5-5.0); eGFR CKD-EPI 92.9 (>60)
[2022-07-11] MEDS: Cholecalciferol (VIT D3) 1,000 unit TAB PO SCH (07:36)
[2022-07-11] MEDS: prednisoLONE 1% OPHTH.SUSP 5 ML OPHTH.SUSP RIGHT EYE SCH (07:38)
[2022-07-11] MEDS ORDERED: Lactated Ringers 1000 ml BAG 1,000 ML IV SCH (08:00)
[2022-07-11 08:37] LABS: Magnesium 1.8 mg/dL (1.9-2.7)
[2022-07-11] MEDS ORDERED: Magnesium Sulfate 2 gm BAG 2 GM/50 ML BAG IVPB ONE (08:58)
[2022-07-11] MEDS: CMCS:Dorzolamide/Timolol OPTH (NF) 10 ML BOT RIGHT EYE SCH (09:25)
[2022-07-11] MEDS: Acetaminophen IV 1 GM/100ML 1,000 MG/100 ML BAG IV PRN (10:42)
[2022-07-11] MEDS ORDERED: Senna TAB 8.6 mg TAB PO PRN (11:00)
[2022-07-11] MEDS ORDERED: Polyethylene Glycol 3350 17 GM PACKET PO PRN (11:00)
[2022-07-11] MEDS ORDERED: Magnesium Hydroxide LIQ 30 ML UDC PO PRN (11:00)
[2022-07-11] MEDS ORDERED: Prochlorperazine 5 mg/ml 2 ml VIAL (10 mg) IV PRN (17:00)
[2022-07-11] MEDS ORDERED: Naloxone 0.4 mg VIAL 0.4 mg/ml 1 ml VIAL IV PRN (17:00)
[2022-07-11] MEDS ORDERED: fentaNYL 100 mcg/2 ml 50 MCG/ML VIAL IV PRN (17:00)
[2022-07-11] MEDS ORDERED: Morphine 4 MG/ML VIAL (1 ml) IV PRN (17:00)
[2022-07-11] MEDS ORDERED: Propofol 10 MG/ML 20 ML BTL ONE ×2 (17:38→18:29)
[2022-07-11] MEDS ORDERED: Lidocaine 2% PF 5 ML VIAL ONE (17:38)
[2022-07-11] MEDS ORDERED: fentaNYL 250 mcg/5 ml 50 MCG/ML 5 ml VIAL (250 MCG) ONE (17:38)
[2022-07-11] MEDS ORDERED: Bupivacaine 0.5% 50 ML MDV VIAL ONE (17:45)
[2022-07-11] MEDS ORDERED: ceFAZolin 2 GM in NS PREMIX 2 GM/100 ML BAG IVPB ONE (17:52)
[2022-07-11] MEDS ORDERED: Ondansetron 4 mg VIAL 2 MG/ML 2 ml VIAL ONE (18:33)
[2022-07-11] MEDS ORDERED: Dexamethasone IV 4 MG/ML VIAL 1 ml VIAL ONE (18:33)
[2022-07-11] MEDS ORDERED: HYDROmorphone 0.5 MG/0.5 ML SYRINGE ONE ×2 (19:39→21:05)
[2022-07-11] MEDS ORDERED: Acetaminophen IV 1 GM/100ML 1,000 MG/100 ML BAG IV ONE ×2 (19:51→21:28)
[2022-07-11] MEDS ORDERED: Latanoprost 0.005% 2.5 ml BTL RIGHT EYE SCH (21:00)
[2022-07-11] MEDS ORDERED: Magnesium Hydroxide LIQ 30 ML UDC PO SCH (21:00)
[2022-07-11] MEDS ORDERED: fentaNYL 100 mcg/2 ml 50 MCG/ML VIAL ONE (21:49)
[2022-07-12] MEDS: CMCS:Dorzolamide/Timolol OPTH (NF) 10 ML BOT RIGHT EYE SCH ×4 (00:05→19:26)
[2022-07-12] MEDS: Latanoprost 0.005% 2.5 ml BTL RIGHT EYE SCH ×2 (00:07→20:16)
[2022-07-12] MEDS: ceFAZolin 1 GM X 3 DOSES POST-OP Q8H (AddVan) IVPB SCH ×3 (01:55→18:12)
[2022-07-12 02:56] LABS: ABS Lymphocytes 0.8 10^3/uL (1.0-4.8); ABS Monocytes 1.5 10^3/uL (0.0-1.1); ABS Neutrophils 9.9 10^3/uL (1.5-7.6); Hematocrit 30.3 % (38-53); Hemoglobin 10.3 g/dL (13.2-16.3); Lymphocyte % 6.6 %; Mean Corpuscular Hemoglobin 30.6 pg (27-33); Mean Corpuscular Hgb Conc 34.2 g/dL (31-36); Mean Corpuscular Volume 89.5 fL (80-97); Platelet Count 162 10^3/uL (150-450); Red Blood Count 3.38 10^6/uL (4.06-5.63); Red Cell Distribution Width 13.6 % (12-17); White Blood Count 12.3 10^3/uL (3.6-10.2)
[2022-07-12 03:35] LABS: Albumin 3.3 g/dL (3.2-5.2); Albumin/Globulin Ratio 1.7 (1-3); Calcium 7.9 mg/dL (8.6-10.3); Total Bilirubin 0.7 mg/dL (0.2-1.0); Total Protein 5.3 g/dL (6.4-8.9); eGFR CKD-EPI 80.5 (>60)
[2022-07-12] MEDS: Cholecalciferol (VIT D3) 1,000 unit TAB PO SCH (08:27)
[2022-07-12] MEDS: Acetaminophen IV 1 GM/100ML 1,000 MG/100 ML BAG IV PRN (08:28)
[2022-07-12] MEDS: prednisoLONE 1% OPHTH.SUSP 5 ML OPHTH.SUSP RIGHT EYE SCH (08:30)
[2022-07-12] MEDS: Magnesium Hydroxide LIQ 30 ML UDC PO SCH ×3 (08:30→20:11)
[2022-07-12] MEDS: Enoxaparin 40 MG/0.4 ML SYR SUBCUT SCH (08:31)
[2022-07-12] MEDS ORDERED: Dextran 70/Hypromellose Tears Eye Drops 15 ml BTL (for Artificials Tears) BOTH EYES PRN (14:43)
[2022-07-12] MEDS: Benzocaine (plain) Lozenge 15 MG MT PRN (17:10)
[2022-07-13 06:46] LABS: Hematocrit 27.7 % (38-53); Hemoglobin 9.5 g/dL (13.2-16.3); Mean Corpuscular Hemoglobin 30.7 pg (27-33); Mean Corpuscular Hgb Conc 34.5 g/dL (31-36); Mean Platelet Volume 9.6 fL (7.5-11.2); Platelet Count 170 10^3/uL (150-450); Red Blood Count 3.11 10^6/uL (4.06-5.63); Red Cell Distribution Width 13.4 % (12-17); White Blood Count 13.6 10^3/uL (3.6-10.2)
[2022-07-13 07:06] LABS: Creatinine, Serum 0.75 mg/dL (0.67-1.17); Potassium 4.4 mmol/L (3.5-5.0); eGFR CKD-EPI 96.5 (>60)
[2022-07-13 07:30] LABS: ABS Lymphocytes 1.7 10^3/uL (1.0-4.8); ABS Monocytes 2.4 10^3/uL (0.0-1.1); ABS Neutrophils 9.4 10^3/uL (1.5-7.6); Eosinophil % 0.3 %; Lymphocyte % 12.5 %
[2022-07-13] MEDS: Magnesium Hydroxide LIQ 30 ML UDC PO SCH ×2 (09:11→20:14)
[2022-07-13] MEDS: Cholecalciferol (VIT D3) 1,000 unit TAB PO SCH (09:14)
[2022-07-13] MEDS: Enoxaparin 40 MG/0.4 ML SYR SUBCUT SCH (09:14)
[2022-07-13] MEDS: CMCS:Dorzolamide/Timolol OPTH (NF) 10 ML BOT RIGHT EYE SCH ×2 (09:16→20:15)
[2022-07-13] MEDS: prednisoLONE 1% OPHTH.SUSP 5 ML OPHTH.SUSP RIGHT EYE SCH (09:16)
[2022-07-13] MEDS ORDERED: Glycerin ADULT 2.4 gm SUPP PR ONE (09:16)
[2022-07-13] MEDS ORDERED: Iohexol 350 (CONTRAST) 500 ML MDV IV ONE (09:33)
[2022-07-13] MEDS ORDERED: Heparin 5000 UNITS/ML 1 mL VIAL IV SCH (13:00)
[2022-07-13 13:26] LABS: ABS Basophils 0.1 10^3/uL (0.0-0.1); ABS Eosinophils 0.1 10^3/uL (0.0-0.5); ABS Lymphocytes 1.3 10^3/uL (1.0-4.8); ABS Monocytes 0.8 10^3/uL (0.0-1.1); ABS Neutrophils 8.2 10^3/uL (1.5-7.6); ABS Nucleated RBC 0.01 10^3/ul; Eosinophil % 0.5 %; Hematocrit 26.9 % (38-53); Hemoglobin 9.3 g/dL (13.2-16.3); Lymphocyte % 12.4 %; Mean Corpuscular Hemoglobin 30.6 pg (27-33); Mean Corpuscular Hgb Conc 34.5 g/dL (31-36); Mean Corpuscular Volume 88.5 fL (80-97); Mean Platelet Volume 9.3 fL (7.5-11.2); Nucleated Red Blood Cells % 0.1 /100 WBC (0.0-0.4); Platelet Count 175 10^3/uL (150-450); Red Blood Count 3.04 10^6/uL (4.06-5.63); Red Cell Distribution Width 13.6 % (12-17); White Blood Count 10.5 10^3/uL (3.6-10.2)
[2022-07-13] MEDS: Heparin DRIP 25,000 UNITS BAG 25,000 UNITS/500 ML BAG IV SCH (13:41)
[2022-07-13 14:07] LABS: Creatinine, Serum 0.83 mg/dL (0.67-1.17); eGFR CKD-EPI 93.6 (>60)
[2022-07-13] MEDS: Benzocaine (plain) Lozenge 15 MG MT PRN (17:35)
[2022-07-13] MEDS: Latanoprost 0.005% 2.5 ml BTL RIGHT EYE SCH (20:14)
[2022-07-14 02:47] LABS: Hematocrit 24.6 % (38-53); Hemoglobin 8.6 g/dL (13.2-16.3); Mean Corpuscular Hemoglobin 31.1 pg (27-33); Mean Corpuscular Hgb Conc 34.9 g/dL (31-36); Mean Corpuscular Volume 89.2 fL (80-97); Mean Platelet Volume 9.3 fL (7.5-11.2); Platelet Count 172 10^3/uL (150-450); Red Blood Count 2.75 10^6/uL (4.06-5.63); Red Cell Distribution Width 13.6 % (12-17); White Blood Count 11.6 10^3/uL (3.6-10.2)
[2022-07-14 02:48] LABS: ABS Eosinophils 0.3 10^3/uL (0.0-0.5); ABS Lymphocytes 1.5 10^3/uL (1.0-4.8); ABS Neutrophils 7.7 10^3/uL (1.5-7.6); Eosinophil % 2.6 %; Lymphocyte % 12.8 %
[2022-07-14 03:25] LABS: Calcium 7.4 mg/dL (8.6-10.3); Potassium 4.3 mmol/L (3.5-5.0)
[2022-07-14 03:26] LABS: Creatinine, Serum 0.63 mg/dL (0.67-1.17); eGFR CKD-EPI 101.7 (>60)
[2022-07-14] MEDS: Heparin DRIP 25,000 UNITS BAG 25,000 UNITS/500 ML BAG IV SCH (04:38)
[2022-07-14] MEDS: prednisoLONE 1% OPHTH.SUSP 5 ML OPHTH.SUSP RIGHT EYE SCH (09:29)
[2022-07-14] MEDS: CMCS:Dorzolamide/Timolol OPTH (NF) 10 ML BOT RIGHT EYE SCH ×2 (09:29→20:23)
[2022-07-14] MEDS: Cholecalciferol (VIT D3) 1,000 unit TAB PO SCH (09:30)
[2022-07-14] MEDS: Magnesium Hydroxide LIQ 30 ML UDC PO SCH ×2 (09:30→20:34)
[2022-07-14] MEDS: Benzocaine (plain) Lozenge 15 MG MT PRN ×2 (09:30→14:55)
[2022-07-14] MEDS: Enoxaparin 100 MG/ML SYR SUBCUT SCH (14:56)
[2022-07-14] MEDS ORDERED: Enoxaparin 100 MG/ML SYR SUBCUT SCH ×2 (15:00→20:00)
[2022-07-14 16:27] LABS: Hematocrit 25.6 % (38-53); Hemoglobin 8.9 g/dL (13.2-16.3)
[2022-07-14] MEDS: Latanoprost 0.005% 2.5 ml BTL RIGHT EYE SCH ×2 (20:22→21:00)
[2022-07-15] MEDS: Enoxaparin 100 MG/ML SYR SUBCUT SCH (05:11)
[2022-07-15] MEDS: Benzocaine (plain) Lozenge 15 MG MT PRN (05:11)
[2022-07-15 05:58] LABS: Hemoglobin 8.4 g/dL (13.2-16.3); Mean Corpuscular Hemoglobin 30.6 pg (27-33); Mean Corpuscular Volume 87.6 fL (80-97); Mean Platelet Volume 9.4 fL (7.5-11.2); Platelet Count 198 10^3/uL (150-450); Red Blood Count 2.74 10^6/uL (4.06-5.63); Red Cell Distribution Width 13.4 % (12-17); White Blood Count 9.1 10^3/uL (3.6-10.2)
[2022-07-15 06:03] LABS: ABS Eosinophils 0.4 10^3/uL (0.0-0.5); ABS Monocytes 1.6 10^3/uL (0.0-1.1); ABS Neutrophils 6.1 10^3/uL (1.5-7.6); ABS Nucleated RBC 0.01 10^3/ul; Eosinophil % 4.9 %; Lymphocyte % 10.5 %; Nucleated Red Blood Cells % 0.1 /100 WBC (0.0-0.4)
[2022-07-15 06:17] LABS: Calcium 7.8 mg/dL (8.6-10.3); Creatinine, Serum 0.71 mg/dL (0.67-1.17); Magnesium 2.1 mg/dL (1.9-2.7); Potassium 4.6 mmol/L (3.5-5.0); eGFR CKD-EPI 98.1 (>60)
[2022-07-15] MEDS: CMCS:Dorzolamide/Timolol OPTH (NF) 10 ML BOT RIGHT EYE SCH ×2 (11:12→20:24)
[2022-07-15] MEDS: prednisoLONE 1% OPHTH.SUSP 5 ML OPHTH.SUSP RIGHT EYE SCH (11:12)
[2022-07-15] MEDS: Cholecalciferol (VIT D3) 1,000 unit TAB PO SCH (11:14)
[2022-07-15] MEDS: Magnesium Hydroxide LIQ 30 ML UDC PO SCH ×2 (11:17→20:27)
[2022-07-16] MEDS: Benzocaine (plain) Lozenge 15 MG MT PRN (01:47)
[2022-07-16 05:46] LABS: Hemoglobin 8.4 g/dL (13.2-16.3); Mean Corpuscular Hemoglobin 31.1 pg (27-33); Mean Platelet Volume 8.8 fL (7.5-11.2); Platelet Count 241 10^3/uL (150-450); Red Cell Distribution Width 13.4 % (12-17); White Blood Count 9.8 10^3/uL (3.6-10.2)
[2022-07-16 05:52] LABS: ABS Eosinophils 0.5 10^3/uL (0.0-0.5); ABS Lymphocytes 1.1 10^3/uL (1.0-4.8); ABS Neutrophils 6.2 10^3/uL (1.5-7.6); ABS Nucleated RBC 0.01 10^3/ul; Eosinophil % 5.3 %; Nucleated Red Blood Cells % 0.1 /100 WBC (0.0-0.4)
[2022-07-16 06:36] LABS: Calcium 8.1 mg/dL (8.6-10.3); Creatinine, Serum 0.66 mg/dL (0.67-1.17); Potassium 4.5 mmol/L (3.5-5.0); eGFR CKD-EPI 100.3 (>60)
[2022-07-16] MEDS: prednisoLONE 1% OPHTH.SUSP 5 ML OPHTH.SUSP RIGHT EYE SCH (09:06)
[2022-07-16] MEDS: CMCS:Dorzolamide/Timolol OPTH (NF) 10 ML BOT RIGHT EYE SCH ×2 (09:07→21:08)
[2022-07-16] MEDS: Cholecalciferol (VIT D3) 1,000 unit TAB PO SCH (09:07)
[2022-07-16] MEDS: Magnesium Hydroxide LIQ 30 ML UDC PO SCH ×2 (09:08→21:10)
[2022-07-16 09:21] LABS: Rapid COVID-19 Molecular Undetected (Undetected)
[2022-07-17 06:29] VITALS: BP 157/80
[2022-07-17] MEDS: Cholecalciferol (VIT D3) 1,000 unit TAB PO SCH (08:48)
[2022-07-17] MEDS: CMCS:Dorzolamide/Timolol OPTH (NF) 10 ML BOT RIGHT EYE SCH (08:48)
[2022-07-17] MEDS: Magnesium Hydroxide LIQ 30 ML UDC PO SCH (08:49)
[2022-07-17] MEDS: prednisoLONE 1% OPHTH.SUSP 5 ML OPHTH.SUSP RIGHT EYE SCH (08:49)
== END 2022-07-17 09:20 | DRG 480 ==
LOC: SUATTDRO 21:54 → SSU 21:54
PROVIDERS: ADMIT Internal Medicine; ATTEND Internal Medicine